=== PATIENT | male | born 1970 | race Caucasian/White ===

== ENCOUNTER 2023-09-28 06:09 | Day surgery (SDC) | payer OTHER, SELFPAY ==
[2023-09-14 14:10] VITALS: BMI 28.8
[2023-09-28] VITALS (8 sets, daily range): BP systolic 117–150; BP diastolic 86–106; BMI 28.8
[2023-09-28] MEDS: NORMOSOL-R 1000 IV (07:52)
[2023-09-28] MEDS: TYLENOL 650 MG PO (10:25)
== END 2023-09-28 10:56 | disposition home or self-care (01) ==
LOC: SDS 06:09
PROVIDERS: ATTENDING PHYSICIAN Otolaryngology; FAMILY PHYSICIAN Nurse Practitioner; OTHER PHYSICIAN Internal Medicine Cardiovascular Disease
DX: J34.2 Deviated nasal septum (principal); J34.3 Hypertrophy of nasal turbinates
CPT/HCPCS: 30520; 30140; 36415; 93005